=== PATIENT | male | born 1965 | race Two or more races ===

== ENCOUNTER 2018-11-07 12:54 | Emergency (ER) | payer OTHER ==
[~2018-11-07] VITALS: Ht 172.7 cm; Wt 104.3 kg
[2018-11-07 12:59] VITALS: BP 140/85
[2018-11-07] MEDS ORDERED: BACITRACIN TOP OINT 1 UD PKG TOP ONE (15:45)
[2018-11-07] MEDS ORDERED: LIDOCAINE 1% (LOCAL ANESTH.) PF 5ml SDV ID ONE (15:45)
[2018-11-07] MEDS ORDERED: TETANUS-DIPTH-ACEL PERTUSSIS 0.5ML SYRG IM ONE (16:00)
== END 2018-11-07 17:46 | disposition home or self-care (01) ==
LOC: ER 13:04
DX: S61.215A Laceration without foreign body of left ring finger without damage to nail, initial encounter (principal); S61.217A Laceration without foreign body of left little finger without damage to nail, initial encounter; E11.9 Type 2 diabetes mellitus without complications; W26.9XXA Contact with unspecified sharp object(s), initial encounter; Y93.89 Activity, other specified; Y99.8 Other external cause status; Y92.89 Other specified places as the place of occurrence of the external cause
CPT/HCPCS: 12002; 90471; 90715

== ENCOUNTER 2018-11-16 12:29 | Emergency (ER) | payer OTHER ==
[~2018-11-16] VITALS: Ht 172.7 cm; Wt 104.3 kg
[2018-11-16 13:00] VITALS: BP 133/83
== END 2018-11-16 14:31 | disposition home or self-care (01) ==
LOC: ER 12:29
DX: S61.215D Laceration without foreign body of left ring finger without damage to nail, subsequent encounter (principal); E11.9 Type 2 diabetes mellitus without complications; X58.XXXD Exposure to other specified factors, subsequent encounter